=== PATIENT | male | born 1995 | race Caucasian/White ===

== ENCOUNTER 2017-07-09 00:54 | Emergency (ER) | payer OTHER ==
[~2017-07-09] VITALS: Ht 170.2 cm; Wt 63.5 kg
[~2017-07-09 00:54] MED LIST: CORTISPORIN EAR10 ML AD; PROAIR HFA8.5 GM INH
== END 2017-07-09 01:40 | disposition home or self-care (01) ==
LOC: ED 00:54
DX: H16.139 Photokeratitis, unspecified eye (principal)
CPT/HCPCS: 90471; 90715; 99282

== ENCOUNTER 2019-02-13 10:24 | Emergency (ER) | payer OTHER ==
[~2019-02-13] VITALS: Ht 170.2 cm; Wt 68.0 kg
== END 2019-02-13 11:46 | disposition home or self-care (01) ==
LOC: ED 10:24
DX: S01.01XA Laceration without foreign body of scalp, initial encounter (principal); V89.2XXA Person injured in unspecified motor-vehicle accident, traffic, initial encounter
CPT/HCPCS: 99283

== ENCOUNTER 2020-05-10 19:39 | Emergency (ER) | payer OTHER ==
[~2020-05-10] VITALS: Ht 170.2 cm; Wt 70.0 kg
== END 2020-05-10 22:41 | disposition home or self-care (01) ==
LOC: ED 19:39
DX: S40.211A Abrasion of right shoulder, initial encounter (principal); F10.129 Alcohol abuse with intoxication, unspecified; V47.5XXA Car driver injured in collision with fixed or stationary object in traffic accident, initial encounter; Y90.8 Blood alcohol level of 240 mg/100 ml or more
CPT/HCPCS: 70450; 71045; 72125; 80053; 81001; 82150; 82550; 83690; 85025; 86850; 86900; 86901; 90471; 90715; 99284-25; J7030

== ENCOUNTER 2020-09-07 09:35 | Emergency (ER) | payer OTHER ==
[~2020-09-07] VITALS: Ht 170.2 cm; Wt 69.8 kg
== END 2020-09-07 13:02 | disposition home or self-care (01) ==
LOC: ED 09:35
DX: S51.812A Laceration without foreign body of left forearm, initial encounter (principal); Z23 Encounter for immunization; W22.8XXA Striking against or struck by other objects, initial encounter; Y99.0 Civilian activity done for income or pay
CPT/HCPCS: 12032; 90471; 90715; 99282-25